=== PATIENT | female | born 1985 | race Caucasian/White ===

== ENCOUNTER 2018-01-17 20:44 | Emergency (ER) | payer OTHER ==
[2018-01-17 21:07] VITALS: BP 130/75
[2018-01-17] MEDS ORDERED: Ondansetron 4 MG/2 ML SDV IVPUSH ONE (21:23)
[2018-01-17] MEDS ORDERED: Sodium Chloride 0.9% 1,000 ML IV ONE (21:23)
--- NOTE | 2018-01-17 21:25 | EDM.PDOC ---
ED HPI GENERAL MEDICAL PROBLEM - General Chief Complaint: Gastrointestinal Problem Stated Complaint: POSSIBLE FLU VOMMITING Time Seen by Provider: 01/17/18 21:05 Source of Information: Reports: Patient, Family () History Limitations: Reports: No Limitations - History of Present Illness INITIAL COMMENTS - FREE TEXT/NARRATIVE: The patient states that she had malaise and watery diarrhea since yesterday, then developed nausea with emesis, lightheadedness, abdominal cramps, and diaphoresis this morning. No recent fever. Her symptoms have been waxing and waning today, but got worse again tonight. She tried taking Advil, but vomited, then tried taking meclizine, but vomited it as well. No similarly ill contacts, although the patient's son has had diarrhea (only) for the past 2 days. No recent spoiled food. No recent antibiotics. No recent travel. No prior similar symptoms. The patient's PCP is Dr. Maddie Geronimo. 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: Psychiatric History: Reports: Anxiety, Depression Endocrine/Metabolic History: Reports: Hypothyroidism, Obesity/BMI 30+, Vitamin D Deficiency Hematologic History: Reports: Anemia - Past Surgical History HEENT Surgical History: Reports: Oral Surgery ([place] teeth extraction) GI Surgical History: Reports: Cholecystectomy (02/11/2016) Female Surgical History: Reports: Section (x 4), Cystoscopy Musculoskeletal Surgical History: Reports: Arthroscopic Knee (right), Arthroscopic Procedure (left shoulder x 2), Other (See Below) (Left wrist ganglion cyst excision) Social & Family History - Family History Family Medical History: Noncontributory - Tobacco Use Smoking Status *Q: Current Every Day Smoker Years of Tobacco use: 13 Packs/Tins Daily: 0.4 - Caffeine Use Caffeine Use: Reports: Coffee, Energy Drinks, Soda, Tea - Alcohol Use Alcohol Use History: Yes Alcohol Use Frequency: Socially - Recreational Drug Use Recreational Drug Use: No - Living Situation & Occupation Living situation: Reports: , with Spouse, with Family (3 kids) Occupation: Unemployed ED ROS GENERAL - Review of Systems Review Of Systems: ROS reveals no pertinent complaints other than HPI. ED EXAM, GI/ABD - Physical Exam Exam: See Below Exam Limited By: No Limitations General Appearance: Alert, WD/WN, No Apparent Distress Eyes: Bilateral: Normal Appearance, EOMI Ears: Normal External Exam, Hearing Grossly Normal Nose: Normal Inspection, No Blood Throat/Mouth: Normal Inspection, Normal Lips, Normal Voice, No Airway Compromise Head: Atraumatic, Normocephalic Neck: Normal Inspection, Full Range of Motion Respiratory/Chest: No Respiratory Distress, Lungs Clear, Normal Breath Sounds, No Accessory Muscle Use Cardiovascular: Normal Peripheral Pulses, Regular Rate, Rhythm, No Edema, No Gallop, No JVD, No Murmur, No Rub GI/Abdominal Exam: Normal Bowel Sounds (active), Soft, No Organomegaly, No Distention, No Abnormal Bruit, No Mass, Tender (Right upper quadrant and epigastrium only. Nontender elsewhere.), Other (Obese) (Female) Exam: Deferred Rectal (Female) Exam: Deferred Back Exam: Normal Inspection, Full Range of Motion. No: CVA Tenderness (L), CVA Tenderness (R) Extremities: Normal Inspection, Normal Range of Motion, No Pedal Edema, Normal Capillary Refill Neurological: Alert, Oriented, Normal Cognition, No Motor/Sensory Deficits Psychiatric: Normal Affect Skin Exam: Warm, Dry, Intact, Normal Color, No Rash Course - Vital Signs Last Recorded V/S: Last Vital Signs Temp 36.8 C 01/17/18 20:55 Pulse 89 01/17/18 20:55 Resp 20 01/17/18 20:55 BP 130/75 01/17/18 20:55 Pulse Ox 98 01/17/18 20:55 Orthostatic Blood Pressure [ 130/73 Standing] Orthostatic Blood Pressure [ 120/64 Supine] - Orders/Labs/Meds Orders: Active Orders 24 hr Category Date Time Status Orthostatic Vital Signs [RC] STAT Care 01/17/18 21:23 Active Ang Chest [CT] Stat Exams 01/17/18 21:52 Stop Req HCG QUALITATIVE,URINE [URCHEM] Stat Lab 01/17/18 21:30 Ordered UA W/MICROSCOPIC [URIN] Stat Lab 01/17/18 21:30 Ordered Labs: Laboratory Tests 01/17/18 01/17/18 01/17/18 Range/Units 21:30 21:30 21:30 WBC 8.12 (3.98-10.04) K/mm3 RBC 4.39 (3.98-5.22) M/mm3 Hgb 11.8 (11.2-15.7) gm/L Hct 36.7 (34.1-44.9) % MCV 83.6 (79.4-94.8) fl MCH 26.9 (25.6-32.2) pg MCHC 32.2 (32.2-35.5) g/dl RDW Std Deviation 44.0 (36.4-46.3) fL Plt Count 237 (182-369) K/mm3 MPV 10.8 (9.4-12.3) fl Neutrophils % (Manual) 85 H (40-60) % Band Neutrophils % 0 (0-10) % Lymphocytes % (Manual) 13 L (20-40) % Atypical Lymphs % 0 % Monocytes % (Manual) 2 (2-10) % Eosinophils % (Manual) 0 L (0.7-5.8) % Basophils % (Manual) 0 L (0.1-1.2) Platelet Estimate Adequate Plt Morphology Comment Normal Hypochromasia 1+ slight Anisocytosis 1+ slight RBC Morph Comment Not Reportable Sodium (136-145) mEq/L Potassium (3.5-5.1) mEq/L Chloride (98-107) mEq/L Carbon Dioxide (21-32) mEq/L Anion Gap (5-15) BUN (7-18) mg/dL Creatinine (0.55-1.02) mg/dL Est Cr Clr Drug Dosing mL/min Estimated GFR (MDRD) (>60) mL/min BUN/Creatinine Ratio (14-18) Glucose (74-106) mg/dL Lactic Acid (0.4-2.0) mmol/L Calcium (8.5-10.1) mg/dL Magnesium (1.8-2.4) mg/dl Total Bilirubin (0.2-1.0) mg/dL AST (15-37) U/L ALT (14-59) U/L Alkaline Phosphatase (46-116) U/L Total Protein (6.4-8.2) g/dl Albumin (3.4-5.0) g/dl Globulin gm/dL Albumin/Globulin Ratio (1-2) Lipase (73-393) U/L Urine Color Yellow (Yellow) Urine Appearance Clear (Clear) Urine pH 6.0 (5.0-8.0) Ur Specific [place] 1.010 (1.005-1.030) Urine Protein Negative (Negative) Urine Glucose (UA) Negative (Negative) Urine Ketones Negative (Negative) Urine Occult Blood Negative (Negative) Urine Nitrite Negative (Negative) Urine Bilirubin Negative (Negative) Urine Urobilinogen 0.2 (0.2-1.0) Ur Leukocyte Esterase Negative (Negative) Urine RBC Not seen (0-5) /hpf Urine WBC 0-5 (0-5) /hpf Ur Epithelial Cells Not seen (0-5) /hpf Urine Bacteria Not seen (FEW) /hpf Urine Mucus Not seen (FEW) /hpf Urine HCG, Qual Negative (NEGATIVE) 01/17/18 01/17/18 Range/Units 21:30 21:30 WBC (3.98-10.04) K/mm3 RBC (3.98-5.22) M/mm3 Hgb (11.2-15.7) gm/L Hct (34.1-44.9) % MCV (79.4-94.8) fl MCH (25.6-32.2) pg MCHC (32.2-35.5) g/dl RDW Std Deviation (36.4-46.3) fL Plt Count (182-369) K/mm3 MPV (9.4-12.3) fl Neutrophils % (Manual) (40-60) % Band Neutrophils % (0-10) % Lymphocytes % (Manual) (20-40) % Atypical Lymphs % % Monocytes % (Manual) (2-10) % Eosinophils % (Manual) (0.7-5.8) % Basophils % (Manual) (0.1-1.2) Platelet Estimate Plt Morphology Comment Hypochromasia Anisocytosis RBC Morph Comment Sodium 136 (136-145) mEq/L Potassium 3.3 L (3.5-5.1) mEq/L Chloride 101 (98-107) mEq/L Carbon Dioxide 28 (21-32) mEq/L Anion Gap 10.3 (5-15) BUN 10 (7-18) mg/dL Creatinine 1.0 (0.55-1.02) mg/dL Est Cr Clr Drug Dosing 62.07 mL/min Estimated GFR (MDRD) > 60 (>60) mL/min BUN/Creatinine Ratio 10.0 L (14-18) Glucose 104 (74-106) mg/dL Lactic Acid 0.9 (0.4-2.0) mmol/L Calcium 9.3 (8.5-10.1) mg/dL Magnesium 1.6 L (1.8-2.4) mg/dl Total Bilirubin 0.7 (0.2-1.0) mg/dL AST 16 (15-37) U/L ALT 19 (14-59) U/L Alkaline Phosphatase 69 (46-116) U/L Total Protein 7.7 (6.4-8.2) g/dl Albumin 4.1 (3.4-5.0) g/dl Globulin 3.6 gm/dL Albumin/Globulin Ratio 1.1 (1-2) Lipase 154 (73-393) U/L Urine Color (Yellow) Urine Appearance (Clear) Urine pH (5.0-8.0) Ur Specific [place] (1.005-1.030) Urine Protein (Negative) Urine Glucose (UA) (Negative) Urine Ketones (Negative) Urine Occult Blood (Negative) Urine Nitrite (Negative) Urine Bilirubin (Negative) Urine Urobilinogen (0.2-1.0) Ur Leukocyte Esterase (Negative) Urine RBC (0-5) /hpf Urine WBC (0-5) /hpf Ur Epithelial Cells (0-5) /hpf Urine Bacteria (FEW) /hpf Urine Mucus (FEW) /hpf Urine HCG, Qual (NEGATIVE) Meds: Medications Discontinued Medications Generic Name Dose Route Start Last Admin Trade Name Freq PRN Reason Stop Dose Admin Sodium Chloride 1,000 mls @ 999 mls/hr 01/17/18 21:23 01/17/18 21:40 Normal Saline IV 01/17/18 22:23 999 mls/hr ONETIME ONE Administration Magnesium Sulfate 2 gm/ Premix 50 mls @ 50 mls/hr 01/17/18 22:22 01/17/18 22: 34 IV 01/17/18 23:21 50 mls/hr ONETIME ONE Administration Ondansetron HCl 4 mg 01/17/18 21:23 01/17/18 21:40 Zofran IVPUSH 01/17/18 21:24 4 mg ONETIME ONE Administration - Re-Assessments/Exams Free Text/Narrative Re-Assessment/Exam: 01/17/18 21:25 Clinically, the patient has gastroenteritis. I have ordered blood work, a urinalysis, a urine test, and orthostatics, in addition to IV fluid and Zofran. If the patient is able to provide a stool sample, I will add stool studies. 01/17/18 22:07 The patient is not orthostatic. 01/17/18 22:22 The patient's magnesium level returned mildly depressed at 1.6, with a potassium level mildly depressed at 3.3. The remainder of her workup is unremarkable. I have ordered a 2 g Mg-rider. 01/17/18 23:22 Test results discussed with the patient and her . The patient is likely suffering from viral gastroenteritis. As above, the patient's magnesium level returned mildly low at 1.6. She received a Mg-rider. She did not produce a stool sample for us. I will e-prescribe Zofran, and recommend that she take over -the-counter Imodium if her diarrhea returns. Departure - Departure Time of Disposition: 23:23 Disposition: Home, Self-Care 01 Condition: Fair Clinical Impression: Gastroenteritis, Hypomagnesemia - Discharge Information Referrals: Maddie Geronimo MD [Primary Care Provider] - Forms: ED Department Discharge Additional Instructions: You were seen in the emergency room for watery diarrhea, nausea, vomiting, lightheadedness, abdominal cramps, and feeling sweaty. Workup in the ER included blood work, a urinalysis, a urine test, and positional blood pressure checked. Your workup found your magnesium and potassium levels to be mildly low. You were given IV magnesium in the ER. The remainder of your workup was unremarkable. You are not dehydrated. You do not have a urinary tract infection. You are not . Your vomiting, diarrhea, and other symptoms are MOST LIKELY due to viral gastroenteritis. Unfortunately, there are no medicines to get rid of viral gastroenteritis - it will have to run its course, however, there are medicines to help treat the symptoms. A prescription for the anti-nausea medicine Zofran has been sent to the [facility] located [facility] [employer]. Dissolve 1 tablet on your tongue up to every 8 hours, as needed for nausea/vomiting. If your diarrhea returns, take [id number] Imodium (loperamide), 2 tablets up front, then 1 tablet after each loose bowel movement, to a maximum of 8 tablets within a 24-hour period. Stay adequately hydrated. Gatorade or Powerade are best. Eat a bland diet for the next few days, until you are feeling all better. If your symptoms persist, please follow-up with your PCP, Dr. Maddie Geronimo. If any other problems, please do not hesitate to return to the ER. - My Orders Last 24 Hours: My Active Orders 01/17/18 21:23 Orthostatic Vital Signs [RC] STAT 01/17/18 21:30 HCG QUALITATIVE,URINE [URCHEM] Stat UA W/MICROSCOPIC [URIN] Stat 01/17/18 21:52 Ang Chest [CT] Stat - Assessment/Plan Last 24 Hours: My Active Orders 01/17/18 21:23 Orthostatic Vital Signs [RC] STAT 01/17/18 21:30 HCG QUALITATIVE,URINE [URCHEM] Stat UA W/MICROSCOPIC [URIN] Stat 01/17/18 21:52 Ang Chest [CT] Stat
[2018-01-17] MEDS ORDERED: Sodium Chloride 0.9% 1,000 ML IV SCH (22:00)
[2018-01-17] MEDS ORDERED: Magnesium Sulfate/Water 2 GM in Premix Bag 1 BAG IV ONE (22:22)
== END 2018-01-17 23:35 | disposition home or self-care (01) ==
LOC: JD.ED 20:44
DX: K52.9 Noninfective gastroenteritis and colitis, unspecified (principal); E83.42 Hypomagnesemia; Z79.899 Other long term (current) drug therapy
CPT/HCPCS: 36415; 80053; 81001; 81025; 83605; 83690; 83735; 85025; 96361; 96365; 96375; 99283; J2405; J7040; J3475

== ENCOUNTER 2019-12-05 21:40 | Emergency (ER) | payer OTHER ==
[2019-12-05 22:07] VITALS: BP 135/73; PULSE 79
[2019-12-05] MEDS ORDERED: Acetaminophen/HYDROcodone 325-5 MG Tab PO ONE (22:21)
[2019-12-05] MEDS ORDERED: Penicillin V Potassium 500 MG Tab PO STA (22:21)
--- NOTE | 2019-12-05 22:29 | EDM.PDOC ---
ED HPI GENERAL MEDICAL PROBLEM - General Chief Complaint: ENT Problem Stated Complaint: TOOTHACHE Time Seen by Provider: 12/05/19 22:09 Source of Information: Reports: Patient, Family () History Limitations: Reports: No Limitations - History of Present Illness INITIAL COMMENTS - FREE TEXT/NARRATIVE: Mrs. Burnett is a very pleasant 34-year-old woman with a past medical history significant for hypothyroidism, anxiety, and depression, who now presents to the ED with an upper left tooth ache since 19:00 this evening. She states that the tooth of concern had a sealant when she was 20 years old, but that it came off about a week ago, and may have taken some of the tooth along with it. No recent fever or oral drainage. The patient has a dentist, but has not yet made a dental appointment. The patient states that she took 600 mg of ibuprofen at 21:00 tonight. The patient denies recent chills, cough, dyspnea, chest pain, palpitations, nausea, vomiting, constipation, diarrhea, abdominal pain, urinary symptoms, recent weight gain or weight loss, recent bloody bowel movements or black bowel movements, recent joint aches, headaches, or rashes. The patient's PCP is Dr. Maddie Geronimo. 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 She received an influenza vaccine this season. 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 Left Upper Tooth/Teeth Pain Score (Numeric/FACES): 10 - Related Data Allergies Allergy/AdvReac Type Severity Reaction Status Date / Time clear medical tape Allergy Rash Uncoded 10/22/18 14:52 Home Meds: Home Meds Thyroid Compound 1 cap PO DAILY 01/17/18 [History] Acetaminophen/HYDROcodone [[place] 325-5 MG] 1 tab PO Q6H PRN #12 tablet 12/05/19 [Rx] Penicillin V Potassium 1 tab PO Q6HR #40 tab 12/05/19 [Rx] Past Medical History HEENT History: Reports: Allergic Rhinitis Psychiatric History: Reports: Anxiety, Depression Endocrine/Metabolic History: Reports: Hypothyroidism, Obesity/BMI 30+, Vitamin D Deficiency - Past Surgical History HEENT Surgical History: Reports: Oral Surgery ([place] teeth extraction) GI Surgical History: Reports: Cholecystectomy (02/11/2016) Female Surgical History: Reports: Section (x 5), Cystoscopy Musculoskeletal Surgical History: Reports: Arthroscopic Knee (left), Ganglion Cyst (left wrist), Shoulder Surgery (left, arthroscopic x 2) Social & Family History - Family History Family Medical History: Noncontributory - Tobacco Use Smoking Status *Q: Former Smoker Years of Tobacco use: 10 Packs/Tins Daily: 0.3 Month/Year Tobacco Last Used: Quit 2014 - Caffeine Use Caffeine Use: Reports: Coffee - Alcohol Use Alcohol Use History: Yes Alcohol Use Frequency: Socially - Recreational Drug Use Recreational Drug Use: No - Living Situation & Occupation Living situation: Reports: , with Spouse, with Family (5 kids) Occupation: Unemployed ED ROS ENT - Review of Systems Review Of Systems: Comprehensive ROS is negative, except as noted in HPI. ED EXAM, ENT - Physical Exam Exam: See Below Exam Limited By: No Limitations General Appearance: Alert, WD/WN, No Apparent Distress Eye Exam: Bilateral Eye: EOMI, Normal Inspection Ears: Normal External Exam, Normal Canal, Hearing Grossly Normal, Normal TMs Nose: Normal Inspection, Normal Mucousa, No Blood Mouth/Throat: Normal Lips, Normal Oropharynx, Other (Tooth #1 absent. Tooth #2 carious to the gingiva. Teeth #3, 4 with metallic fillings. Teeth #14 and 15 ( the teeth of concern) carious to the gingiva. Tooth #14 with an exposed metallic filling. Mild associated gingival swelling without pointing or drainage. Tooth #16 absent. Tooth #17 absent. Teeth #18, 19 with metallic fillings. Tooth #29 with metallic filling. Tooth #30 absent. Tooth #31 with metallic filling. Tooth #32 absent.) Head: Atraumatic, Normocephalic Neck: Normal Inspection, Supple, Non-Tender, Full Range of Motion. No: Lymphadenopathy (L), Lymphadenopathy (R) Course - Vital Signs Last Recorded V/S: Last Vital Signs Temp 36.6 C 12/05/19 22:53 Pulse 79 12/05/19 22:06 Resp 20 12/05/19 22:06 BP 135/73 12/05/19 22:06 Pulse Ox 96 12/05/19 22:06 - Orders/Labs/Meds Meds: Medications Discontinued Medications Generic Name Dose Route Start Last Admin Trade Name Freq PRN Reason Stop Dose Admin Hydrocodone Bitart/Acetaminophen 2 tab 12/05/19 22:21 12/05/19 22:29 [place] 325-5 Mg PO 12/05/19 22:22 2 tab ONETIME ONE Administration Penicillin V Potassium 500 mg 12/05/19 22:21 12/05/19 22:29 Veetids PO 12/05/19 22:22 500 mg ONETIME STA Administration - Re-Assessments/Exams Free Text/Narrative Re-Assessment/Exam: 12/05/19 22:22 As above, the patient appears to have severe decay of teeth #2, 14, and 15, each of which could have an infection. For today's purposes, I will start the patient on oral penicillin, and the patient will be given 2 tablets of [place]. Going forward, I will be recommending that she take [id number] ibuprofen [id number], and she may take some [place] as needed for pain not relieved by ibuprofen. She should take penicillin every 6 hours, and I will prescribe a 10-day course. She can also try [id number] DenTemp, which can cover the tooth to avoid exposure to cold and air. She should endeavor to follow-up with a dentist within 10 days, and she will be provided with a list of local dentists. Departure - Departure Time of Disposition: 22:24 Disposition: Home, Self-Care 01 Condition: Good Clinical Impression: Dental infection, Dentalgia - Discharge Information *PRESCRIPTION DRUG MONITORING PROGRAM REVIEWED*: Not Applicable *COPY OF PRESCRIPTION DRUG MONITORING REPORT IN PATIENT DENISE: Not Applicable Prescriptions: Penicillin V Potassium 1 tab PO Q6HR #40 tab Acetaminophen/HYDROcodone [[place] 325-5 MG] 1 tab PO Q6H PRN #12 tablet PRN Reason: Pain (Severe 7-10) Instructions: Diet and Dental Disease, Preventive Dental Care, Adult, Acute Pain, Adult Referrals: Maddie Geronimo MD [Primary Care Provider] - Forms: ED Department Discharge Additional Instructions: You were seen in the emergency room for left upper dental pain. On examination, you have significant decay of teeth #2, 14, and 15. You have been started on the antibiotic penicillin and the opioid pain reliever [place], and prescriptions for both penicillin and [place] have been provided to you. Take 1 tablet of penicillin every 6 hours, as prescribed. Finish the entire prescription unless told otherwise by dentist. Take ttfp-eve-gytfepa ibuprofen, 3 tablets (600 mg) every 8 hours, with food, [id number]. You may take 1 tablet of [place] up to every 6 hours, as needed for pain not relieved by ibuprofen. Consider purchasing [id number]-wpp-kolizui DenTemp to form a temporary crown over your exposed teeth. It is very important that you follow-up with a dentist within 10 days. A list of local dentists has been provided to you. If any other problems, please do not hesitate to return to the ER. Sepsis Event Note - Evaluation Sepsis Screening Result: No Definite Risk - Focused Exam Date Exam was Performed: 12/06/19 Time Exam was Performed: 19:41
== END 2019-12-05 22:53 | disposition home or self-care (01) ==
LOC: JD.ED 21:40
DX: K04.7 Periapical abscess without sinus (principal); K02.9 Dental caries, unspecified; E03.9 Hypothyroidism, unspecified; E66.9 Obesity, unspecified; Z68.35 Body mass index [BMI] 35.0-35.9, adult; Z87.891 Personal history of nicotine dependence; Z91.048 Other nonmedicinal substance allergy status; Z79.899 Other long term (current) drug therapy
CPT/HCPCS: 99283; A9270

== ENCOUNTER 2020-11-09 08:09 | Inpatient (IN) | payer OTHER ==
[~2020-11-09 08:09] MED LIST: Lactated Ringers 1,000 ML IV SCH; Lidocaine 1%/Sod Bicarbonate in NS 8.4% 1 ML Syringe IDERM PRN; Sodium Chloride 0.9% 10 ML Syringe FLUSH PRN
--- NOTE | 2020-11-09 09:55 | PCM.PREANE ---
Preanesthetic Assessment - Anesthesia/Transfusion/Family Hx Anesthesia History: Prior Anesthesia Reaction Family History of Anesthesia Reaction: No Transfusion History: No Prior Transfusion(s) Type of Transfusion Reactions: Reports: Unknown - Review of Systems General: No Symptoms, Other (anemia) Pulmonary: No Symptoms Cardiovascular: No Symptoms Gastrointestinal: No Symptoms Neurological: Other (migraines) Other: Reports: Thyroid Problems (on supplementation) - Physical Assessment NPO Status Date: 11/08/20 NPO Status Time: 22:30 Weight: 95 kg ASA Class: 2 Mental Status: Alert & Oriented x3 Airway Class: Mallampati = 2 Dentition: Reports: Normal Dentition Thyro-Mental Finger Breadths: 3 Mouth Opening Finger Breadths: 3 ROM/Head Extension: Full Lungs: Clear to Auscultation, Normal Respiratory Effort Cardiovascular: Regular Rate, Regular Rhythm - Lab Values: Laboratory Last Values WBC 7.17 K/mm3 (3.98-10.04) 11/09/20 09:30 RBC 4.40 M/mm3 (3.98-5.22) 11/09/20 09:30 Hgb 11.6 gm/dl (11.2-15.7) 11/09/20 09:30 Hct 37.1 % (34.1-44.9) 11/09/20 09:30 MCV 84.3 fl (79.4-94.8) 11/09/20 09:30 MCH 26.4 pg (25.6-32.2) 11/09/20 09:30 MCHC 31.3 g/dl (32.2-35.5) L 11/09/20 09:30 RDW Std Deviation 49.9 fL (36.4-46.3) H 11/09/20 09:30 Plt Count 302 K/mm3 (182-369) 11/09/20 09:30 MPV 10.9 fl (9.4-12.3) 11/09/20 09:30 Neut % (Auto) 62.4 % (34.0-71.1) 11/09/20 09:30 Lymph % (Auto) 28.3 % (19.3-51.7) 11/09/20 09:30 [place] % (Auto) 7.8 % (4.7-12.5) 11/09/20 09:30 Eos % (Auto) 1.1 (0.7-5.8) 11/09/20 09:30 Baso % (Auto) 0.3 % (0.1-1.2) 11/09/20 09:30 Neut # (Auto) 4.47 K/mm3 (1.56-6.13) 11/09/20 09:30 Lymph # (Auto) 2.03 K/mm3 (1.18-3.74) 11/09/20 09:30 [place] # (Auto) 0.56 K/mm3 (0.24-0.36) H 11/09/20 09:30 Eos # (Auto) 0.08 K/mm3 (0.04-0.36) 11/09/20 09:30 Baso # (Auto) 0.02 K/mm3 (0.01-0.08) 11/09/20 09:30 Urine Color Red (Yellow) H 11/09/20 09:11 Urine Appearance Turbid (Clear) H 11/09/20 09:11 Urine pH 6.0 (5.0-8.0) 11/09/20 09:11 Ur Specific [place] > or = 1.030 (1.005-1.030) 11/09/20 09:11 Urine Protein 3+ (Negative) H 11/09/20 09:11 Urine Glucose (UA) Negative (Negative) 11/09/20 09:11 Urine Ketones Negative (Negative) 11/09/20 09:11 Urine Occult Blood 3+ (Negative) H 11/09/20 09:11 Urine Nitrite Positive (Negative) H 11/09/20 09:11 Urine Bilirubin 1+ (Negative) H 11/09/20 09:11 Urine Urobilinogen 0.2 (0.2-1.0) 11/09/20 09:11 Ur Leukocyte Esterase Negative (Negative) 11/09/20 09:11 - Allergies Allergies/Adverse Reactions: Allergies Allergy/AdvReac Type Severity Reaction Status Date / Time clear medical tape Allergy Rash Uncoded 11/08/20 10:22 - Blood Blood Available: No Product(s) Available: None - Anesthesia Plan Pre-Op Medication Ordered: None - Acknowledgements Pt an Appropriate Candidate for the Planned Anesthesia: Yes Alternatives and Risks of Anesthesia Discussed w Pt/Guardian: Yes Pt/Guardian Understands and Agrees with Anesthesia Plan: Yes PreAnesthesia Questionnaire - Past Health History Medical/Surgical History: Denies Medical/Surgical History HEENT History: Reports: Allergic Rhinitis, Impaired Vision Other HEENT History: tooth abscess Cardiovascular History: Reports: None Respiratory History: Reports: None Gastrointestinal History: Reports: Cholelithiasis, Chronic Constipation Genitourinary History: Reports: Other (See Below) Other Genitourinary History: hematuria, HPV 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: , Other (See Below) Other OB/BYN History: dysmenorrhea, menorrhagia, bacterial vaginosis, cervix carcinoma, infertility, HSIL Neurological History: Reports: Migraines, Vertigo Psychiatric History: Reports: Anxiety, Depression, Panic Attack Endocrine/Metabolic History: Reports: Diabetes, Gestational, Hypothyroidism, Obesity/BMI 30+, Vitamin D Deficiency, Other (See Below) Other Endocrine/Metabolic History: thyroid nodule Hematologic History: Reports: Anemia Immunologic History: Reports: None Oncologic (Cancer) History: Reports: None Dermatologic History: Reports: None - Infectious Disease History Infectious Disease History: Reports: None - Past Surgical History Head Surgeries/Procedures: Reports: None HEENT Surgical History: Reports: Oral Surgery Cardiovascular Surgical History: Reports: None Respiratory Surgical History: Reports: None GI Surgical History: Reports: Cholecystectomy Female Surgical History: Reports: Section, Cystoscopy, Other (See Below) Other Female Surgeries/Procedures: bilateral salpingectomy Endocrine Surgical History: Reports: None Neurological Surgical History: Reports: None Musculoskeletal Surgical History: Reports: Arthroscopic Knee, Ganglion Cyst, Shoulder Surgery Other Musculoskeletal Surgeries/Procedures:: knee arthroscopy, shoulder surgery x 2, wrist surgery Oncologic Surgical History: Reports: None Dermatological Surgical History: Reports: None - SUBSTANCE USE Tobacco Use Status *Q: Former Tobacco User Recreational Drug Use History: No - HOME MEDS Home Medications: Home Meds Thyroid Compound 1 cap PO DAILY 01/17/18 [History] Ascorbic Acid/Elderberry Fruit [Elderberry-Vit C 50-100 mg Chw] 1 tab PO DAILY 11/08/20 [History] - CURRENT (IN HOUSE) MEDS Current Meds: Current Medications Lactated Ringer's (Ringers, Lactated) 1,000 mls @ 125 mls/hr IV ASDIRECTED XIMENA Stop: 11/09/20 23:00 Lidocaine/Sodium Bicarbonate (Buffered Lidocaine 1% In Ns 8.4%) 0.25 ml IDERM ONETIME PRN PRN Reason: Prior to IV Start Stop: 11/09/20 18:00 Sodium Chloride (Saline Flush) 10 ml FLUSH ASDIRECTED PRN PRN Reason: Keep Vein Open Stop: 11/09/20 18:00 Discontinued Medications Lactated Ringer's (Ringers, Lactated) 1,000 mls @ 125 mls/hr IV ASDIRECTED XIMENA Lidocaine/Sodium Bicarbonate (Buffered Lidocaine 1% In Ns 8.4%) 0.25 ml IDERM ONETIME PRN PRN Reason: Prior to IV Start Sodium Chloride (Saline Flush) 10 ml FLUSH ASDIRECTED PRN PRN Reason: Keep Vein Open
[2020-11-09] MEDS ORDERED: Bupivacaine 0.5% 30 ML SDV ONE (10:10)
[2020-11-09] MEDS ORDERED: Lidocaine 1% 4 ML ONE (11:19)
[2020-11-09] MEDS ORDERED: Dexmedetomidine 200 MCG/2 ML SDV ONE (11:19)
[2020-11-09] MEDS ORDERED: fentaNYL 100 MCG/2 ML SDV ONE (11:20)
[2020-11-09] MEDS ORDERED: Morphine PF 10 MG/10 ML SDV ONE (11:20)
[2020-11-09] MEDS ORDERED: Midazolam 1 MG/ML 2 ML SDV ONE (11:21)
[2020-11-09] MEDS ORDERED: EPINEPHrine 1 MG/ML SDV ONE (11:22)
[2020-11-09] MEDS ORDERED: Propofol 200 MG/20 ML SDV ONE (11:24)
[2020-11-09] MEDS ORDERED: ceFAZolin 1 GM Vial ONE (11:46)
[2020-11-09] MEDS ORDERED: Lactated Ringers 1,000 ML ONE (12:01)
[2020-11-09] MEDS ORDERED: diphenhydrAMINE 50 MG/ML SDV IVPUSH PRN (12:14)
[2020-11-09] MEDS ORDERED: fentaNYL 100 MCG/2 ML SDV IVPUSH PRN (12:14)
[2020-11-09] MEDS ORDERED: Ondansetron 4 MG/2 ML SDV IVPUSH PRN ×2 (12:14→14:07)
--- NOTE | 2020-11-09 12:59 | PCM.OPNOTE ---
- General Post-Op/Procedure Note Date of Surgery/Procedure: 11/09/20 Operative Procedure(s): Total abdominal hysterectomy Findings: Patient had moderate to severe abdominal wall scarring secondary to her previous 5 C-sections. Uterus had scarring in the anterior lower uterine segment. The ovaries look functional. This fallopian tubes bilaterally were surgically absent. Pre Op Diagnosis: 1. Menorrhagia. 2. Dysmenorrhea Post-Op Diagnosis: Same with pelvic adhesions Anesthesia Technique: General Mask, Spinal Other Anesthesia Type: Local anesthesia with Marcaine 0.5% - 20 cc total Primary Surgeon: Bam Durán Secondary Surgeon: Mason Matta Anesthesia Provider: Will Martin Reason Certified Orthotist/Pedorthist Was Necessary: Retraction, patient safety, quality of care, assistance. Pathology: Uterus Fluid Replacement, Intraop: 1,800 Output, Urine Amount: 30 EBL in mLs: 75 Drain/Tube Comments:: Indwelling bladder catheter Condition: Good Free Text/Narrative:: Surgery duration: 43 minutes Procedure: After adequate consent was obtained, the patient was taken to the operating room. She was given 2 g of Ancef IV for infection prophylaxis. She had sequential compression stockings placed for DVT prophylaxis. She is administered spinal anesthesia. After adequate administration of anesthesia patient was placed in a frog-leg position and was prepped vaginally and abdominally in the routine fashion. Adamson catheter was placed. Patient's abdomen was then opened through her old Pfannenstiel skin incision scar. Old scar was removed as it was somewhat hypertrophic. Intra-abdominal wall adhesions were moderate to severe secondary to previous 5 C-sections. The incision was carried down through skin, subcutaneous and fascial layers. Severe and dense adhesions/scar tissue were apparent. Abdominal cavity was entered without problems. Surgical findings as listed above. A medium sized Reji self-retaining retractor was placed. The uterus was elevated with a double-tooth tenaculum at the fundus. The adhesions on the back scissors were taken down using sharp and blunt dissection taking care to avoid injury to the bowel. Anterior cul-de-sac was noted to have bladder adherent to the front side of the uterus. The secondary to previous C-sections. Using a Enseal vessel closure device the round ligament and the upper broad helped in a routine fashion. Ovaries were conserved per patient desire. The ovarian ligament and broad ligament were then taken down in a routine stepwise fashion using the Enseal system. Same was done on patient's left side. The cardinal ligaments and taken down on each side to the level of the to the cervix. The angles of the vagina were then crossclamped using Rand clamps 2 these pedicles were cut and were suture ligated with Rand stitch of #1 Vicryl. A short running locked #1 Vicryl suture was then placed in the mid incision to complete the closure. Hemostasis was confirmed at this time. The pelvis was irrigated with fluid aspirated. The one sponge that had been placed was removed. The abdominal was then closed. The fascia was closed with a running suture of #1 PDS from angle to angle. The subcutaneous area was closed with 3-0 Monocryl suture in an interrupted layer. Subcuticular closure was then undertaken using 3-0 Monocryl suture on the Ace needle. The incision was further asked made with Prineo mesh. The patient was discharged from the operating room in good condition.
--- NOTE | 2020-11-09 13:06 | PCM.POSTAN ---
POST ANESTHESIA ASSESSMENT - MENTAL STATUS Mental Status: Somnolent - VITAL SIGNS Vital Signs: Last Vital Signs Temp 97.2 F 11/09/20 12:53 Pulse 83 11/09/20 12:53 Resp 19 11/09/20 12:53 BP 129/57 L 11/09/20 12:53 Pulse Ox 95 11/09/20 12:53 - RESPIRATORY Respiratory Status: Respiratory Rate WNL, Airway Patent, O2 Saturation Stable - CARDIOVASCULAR CV Status: Pulse Rate WNL, Blood Pressure Stable - GASTROINTESTINAL GI Status: No Symptoms - PAIN Pain Score: 0 (post SAB) - POST OP HYDRATION Hydration Status: Adequate & Stable
[2020-11-09] MEDS ORDERED: Lactated Ringers 1,000 ML IV SCH (14:07)
[2020-11-09] MEDS ORDERED: Acetaminophen/oxyCODONE 325-5 MG Tab PO PRN ×2 (14:07)
[2020-11-09] MEDS: Ibuprofen 800 MG Tab PO SCH ×2 (16:02→20:05)
[2020-11-09] MEDS: Docusate Sodium 100 MG Cap PO SCH (20:05)
[2020-11-10] MEDS: Ibuprofen 800 MG Tab PO SCH ×3 (02:22→14:02)
[2020-11-10] MEDS ORDERED: Non-Formulary Medication 1 Each PO SCH (06:00)
--- NOTE | 2020-11-10 07:42 | PCM48HPAN ---
Post Anesthesia Note - EVALUATION WITHIN 48HRS OF ANESTHETIC Vital Signs in Normal Range: Yes Patient Participated in Evaluation: Yes Respiratory Function Stable: Yes Airway Patent: Yes Cardiovascular Function Stable: Yes Hydration Status Stable: Yes Pain Control Satisfactory: Yes (requesting pain meds now.) Nausea and Vomiting Control Satisfactory: Yes (denies) Mental Status Recovered: Yes Vital Signs: Last Vital Signs Temp 98.8 F 11/10/20 05:02 Pulse 89 11/10/20 05:02 Resp 18 11/10/20 05:02 BP 105/44 L 11/10/20 05:02 Pulse Ox 96 11/10/20 05:02
[2020-11-10] MEDS ORDERED: THYROID COMPOUND PO SCH (09:00)
--- NOTE | 2020-11-10 09:17 | PCM.SN.2 ---
- Free Text/Narrative Note: Postoperative day #1: Patient is doing well in the postoperative period. Minimal lochia, ambulated without problems. Pain under reasonable control. Hemoglobin 10.0. White count essentially normal. Platelets normal. Patient is afebrile, vital signs are stable Lungs are clear with good breath sounds in all lung griffith. Cardiovascular exam shows regular rate and rhythm. Abdomen is flat, soft, uterus is below the umbilicus and is firm and nontender. Incision is intact, dry. Prineo mesh in place. Legs are nontender. Assessment: 1. Postoperative day #1. Recovery going well. Plan: 1. Routine postoperative care. Consider discharge home later today or early tomorrow depending on patient's clinical course.
[2020-11-10] MEDS ORDERED: Acetaminophen/HYDROcodone 325-5 MG Tab PO PRN ×3 (09:28→09:36)
[2020-11-10] MEDS: Docusate Sodium 100 MG Cap PO SCH (10:01)
[2020-11-10 12:10] VITALS: BP 92/47; PULSE 79
--- NOTE | 2020-11-10 13:20 | PCM.DCSUM1 ---
Discharge Summary - Hospital Course Free Text/Narrative:: Demarcus is a 35-year-old multigravida white female who was admitted on the a.m. of 11/09/2020 with a diagnosis of menorrhagia and dysmenorrhea for a total abdominal hysterectomy. Please see admission history and physical for details. Patient underwent a total abdominal hysterectomy through a laparotomy incision. Please see operative report for details. Patient was noted to have moderate to severe abdominal wall scarring secondary to her previous 5 C-sections. Uterus had scarring on the anterior lower uterine segment. Ovaries look functional in the left in place per patient desire. Fallopian tubes were surgically absent bilaterally. Postoperatively pain was controlled with Duramorph through spinal block. Patient also received ibuprofen on a regular basis. After approximately 20 hours she started using Percocet found this to be less than optimal and switched to [place] which is giving her good pain relief. Her vital signs been stable. Her follow-up hemoglobin was good. There is no evidence of infection, bleeding, vital sign instability. Her urine output has been good. Patient is desiring discharge home. Diagnosis: Stroke: No - Discharge Data Discharge Date: 11/10/20 Discharge Disposition: Home, Self-Care 01 Condition: Good - Referral to Home Health Primary Care Physician: Maddie Geronimo MD - Patient Summary/Data Operative Procedure(s) Performed: Total abdominal hysterectomy - Patient Instructions Diet: Regular Diet as Tolerated Activity: As Tolerated (No intercourse or tampons. Patient may shower. Avoid lifting any weight greater than 15 pounds and avoid driving a car for at least 7 days.) Driving: Do Not Drive Showering/Bathing: May Shower Wound/Incision Care: Keep Operative Site/Wound Site Clean and Dry Notify Provider of: Fever, Increased Pain, Swelling and Redness, Nausea and/or Vomiting - Discharge Plan Home Medications: Home Meds Thyroid Compound 1 cap PO DAILY 01/17/18 [History] Ascorbic Acid/Elderberry Fruit [Elderberry-Vit C 50-100 mg Chw] 1 tab PO DAILY 11/08/20 [History] Acetaminophen/HYDROcodone [[place] 325-5 MG] 1 tab PO Q4H PRN tablet 11/10/20 [Rx] Ibuprofen [Motrin] 800 mg PO Q6H tablet 11/10/20 [Rx] Referrals: Bam Durán MD [Physician] - ([facility] - Discharge Summary/Plan Comment DC Time >30 min.: No Discharge Summary/Plan Comment: Discharge instructions: 1. Discharge home 2. Diet, activity and follow-up discussed with patient. 3. Precautions given concern increased pain, bleeding, temperature, signs/symptoms of DVT/PE. 4. Medications per home medication was printed, discussed with and given to the patient. 5. Return to clinic-Dr. Durán-[facility] in 2 weeks. Diagnosis: 1. Menorrhagia 2. Dysmenorrhea Procedure: Total abdominal hysterectomy 11/09/2020 Condition: Good - Patient Data Vitals - Most Recent: Last Vital Signs Temp 36.6 C 11/10/20 11:18 Pulse 79 11/10/20 11:18 Resp 16 11/10/20 11:18 BP 92/47 L 11/10/20 11:18 Pulse Ox 92 L 11/10/20 11:18 Weight - Most Recent: 94.801 kg I&O - Last 24 hours: Intake & Output 11/09/20 11/10/20 11/10/20 22:59 06:59 14:59 Intake Total 1575 600 180 Output Total 200 1400 Balance 1375 -800 180 Lab Results - Last 24 hrs: Laboratory Results - last 24 hr 11/10/20 Range/Units 05:37 WBC 7.78 (3.98-10.04) K/mm3 RBC 3.77 L (3.98-5.22) M/mm3 Hgb 10.0 L D (11.2-15.7) gm/dl Hct 32.1 L (34.1-44.9) % MCV 85.1 (79.4-94.8) fl MCH 26.5 (25.6-32.2) pg MCHC 31.2 L (32.2-35.5) g/dl RDW Std Deviation 49.5 H (36.4-46.3) fL Plt Count 249 (182-369) K/mm3 MPV 11.0 (9.4-12.3) fl Neut % (Auto) 69.8 (34.0-71.1) % Lymph % (Auto) 21.6 (19.3-51.7) % [place] % (Auto) 7.1 (4.7-12.5) % Eos % (Auto) 1.3 (0.7-5.8) Baso % (Auto) 0.1 (0.1-1.2) % Neut # (Auto) 5.43 (1.56-6.13) K/mm3 Lymph # (Auto) 1.68 (1.18-3.74) K/mm3 [place] # (Auto) 0.55 H (0.24-0.36) K/mm3 Eos # (Auto) 0.10 (0.04-0.36) K/mm3 Baso # (Auto) 0.01 (0.01-0.08) K/mm3 Med Orders - Current: Current Medications Hydrocodone Bitart/Acetaminophen ([place] 325-5 Mg) 2 tab PO Q4H PRN PRN Reason: Pain (severe 7-10) Last Admin: 11/10/20 11:37 Dose: 2 tab Documented by: Hydrocodone Bitart/Acetaminophen ([place] 325-5 Mg) 1 tab PO Q4H PRN PRN Reason: Pain (moderate 4-6) Docusate Sodium (Colace) 100 mg PO BID [facility] Last Admin: 11/10/20 10:01 Dose: 100 mg Documented by: Lactated Ringer's (Ringers, Lactated) 1,000 mls @ 125 mls/hr IV ASDIRECTED [facility] Last Admin: 11/09/20 16:02 Dose: 125 mls/hr Documented by: Ibuprofen (Motrin) 800 mg PO Q6H [facility] Last Admin: 11/10/20 07:38 Dose: 800 mg Documented by: Non-Formulary Medication (Nf Drug) 1 each PO 0600 [facility] Ondansetron HCl (Zofran) 4 mg IVPUSH Q4H PRN PRN Reason: Nausea/Vomiting Discontinued Medications Hydrocodone Bitart/Acetaminophen ([place] 325-5 Mg) 1 tab PO Q4H PRN PRN Reason: Pain (moderate 4-6) Bupivacaine HCl (Marcaine 0.5%) Confirm Administered Dose 30 ml .ROUTE .STK-MED ONE Stop: 11/09/20 10:11 Last Admin: 11/09/20 12:00 Dose: 20 ml Documented by: Cefazolin Sodium (Ancef) Confirm Administered Dose 2 gm .ROUTE .STK-MED ONE Stop: 11/09/20 11:47 Dexmedetomidine HCl (Precedex) Confirm Administered Dose 200 mcg .ROUTE .STK-MED ONE Stop: 11/09/20 11:20 Diphenhydramine HCl (Benadryl) 25 mg IVPUSH Q6H PRN PRN Reason: Pruritis Epinephrine HCl (Adrenalin) Confirm Administered Dose 1 mg .ROUTE .STK-MED ONE Stop: 11/09/20 11:23 Fentanyl (Sublimaze) Confirm Administered Dose 100 mcg .ROUTE .STK-MED ONE Stop: 11/09/20 11:21 Fentanyl (Sublimaze) 50 mcg IVPUSH Q5M PRN PRN Reason: Pain Lactated Ringer's (Ringers, Lactated) 1,000 mls @ 125 mls/hr IV ASDIRECTED XIMENA Lactated Ringer's (Ringers, Lactated) 1,000 mls @ 125 mls/hr IV ASDIRECTED XIMENA Stop: 11/09/20 23:00 Last Admin: 11/09/20 09:25 Dose: 125 mls/hr Documented by: Lidocaine HCl (Xylocaine-Mpf 1%) Confirm Administered Dose 4 mls @ as directed .ROUTE .STK-MED ONE Stop: 11/09/20 11:20 Lactated Ringer's (Ringers, Lactated) Confirm Administered Dose 1,000 mls @ as directed .ROUTE .STK-MED ONE Stop: 11/09/20 12:02 Lidocaine/Sodium Bicarbonate (Buffered Lidocaine 1% In Ns 8.4%) 0.25 ml IDERM ONETIME PRN PRN Reason: Prior to IV Start Lidocaine/Sodium Bicarbonate (Buffered Lidocaine 1% In Ns 8.4%) 0.25 ml IDERM ONETIME PRN PRN Reason: Prior to IV Start Stop: 11/09/20 18:00 Last Admin: 11/09/20 09:25 Dose: 0.25 ml Documented by: Midazolam HCl (Versed 1 Mg/Ml) Confirm Administered Dose 6 mg .ROUTE .STK-MED ONE Stop: 11/09/20 11:22 Miscellaneous Medication (Phenylephrine 1 Mg/10 Ml-Ns) Confirm Administered Dose 1 mg .ROUTE .STK-MED ONE Stop: 11/09/20 12:41 Morphine Sulfate (Duramorph Pf) Confirm Administered Dose 10 mg .ROUTE .STK-MED ONE Stop: 11/09/20 11:21 Non-Formulary Medication (Thyroid Compound) 1 cap PO DAILY XIMENA Ondansetron HCl (Zofran) 4 mg IVPUSH ONETIME PRN PRN Reason: Nausea/Vomiting Oxycodone/Acetaminophen (Percocet 325-5 Mg) 1 tab PO Q4H PRN PRN Reason: Pain (moderate 4-6) Last Admin: 11/10/20 02:22 Dose: 1 tab Documented by: Oxycodone/Acetaminophen (Percocet 325-5 Mg) 2 tab PO Q4H PRN PRN Reason: Pain (severe 7-10) Last Admin: 11/10/20 07:37 Dose: 2 tab Documented by: Propofol (Diprivan 20 Ml) Confirm Administered Dose 400 mg .ROUTE .STK-MED ONE Stop: 11/09/20 11:25 Sodium Chloride (Saline Flush) 10 ml FLUSH ASDIRECTED PRN PRN Reason: Keep Vein Open Sodium Chloride (Saline Flush) 10 ml FLUSH ASDIRECTED PRN PRN Reason: Keep Vein Open Stop: 11/09/20 18:00
== END 2020-11-10 14:30 | disposition home or self-care (01) | DRG 741 ==
LOC: JD.OB 08:09 → JD.MS 11:10
PROVIDERS: ADMIT Obstetrics & Gynecology; ATTEND Obstetrics & Gynecology
PROC: 0UT90ZZ Resection of Uterus, Open Approach (ICD-10-PCS; principal; 2020-11-09)
PROC: 0UB20ZZ Excision of Bilateral Ovaries, Open Approach (ICD-10-PCS; 2020-11-09)
DX: D06.9 Carcinoma in situ of cervix, unspecified (principal); N92.0 Excessive and frequent menstruation with regular cycle; N94.6 Dysmenorrhea, unspecified; F41.9 Anxiety disorder, unspecified; F32.9 Major depressive disorder, single episode, unspecified; E04.1 Nontoxic single thyroid nodule; E55.9 Vitamin D deficiency, unspecified; N73.6 Female pelvic peritoneal adhesions (postinfective); Z86.2 Personal history of diseases of the blood and blood-forming organs and certain disorders involving the immune mechanism; Z79.899 Other long term (current) drug therapy
CPT/HCPCS: 00840; 36415; 81003; 85025; 86850; 86900; 86901; 94762; A9270-GY; J0171; J0690; J2250; J2270; J2370; J2704; J3010; J3490; J7120